=== PATIENT | female | born 1975 | race African-American/Black ===

== ENCOUNTER 2017-05-13 13:17 | Emergency (ER) | payer SELFPAY ==
[~2017-05-13 13:17] MED LIST: NAPR-683 PO
--- NOTE | 2017-05-13 13:48 | PHYS DOC ---
General Chief Complaint: FOOT INJURY PAIN Stated Complaint: FOOT INJURY Time Seen by MD: 13:29 Source: patient Exam Limitations: no limitations Problems: History of Present Illness Initial Comments Patient is a 41-year-old female who comes to the ED complaining of a puncture to the bottom of her right foot. Patient states 1930 last night she slipped on the stairs and hit her right heel on metal strip causing a puncture wound. Bleeding stopped quickly spontaneously and pain has been controlled the patient clean the wound and applied a Band-Aid. She denies any other injuries from the fall and denies any foot or ankle pain but is aware that with her uncontrolled metabolic diseases foot sores can cause significant issues. She has history of hypertension and diabetes but states that she hasn't been on medication for the past 4-5 months due to finances. She has prescriptions available to her she says she just cannot afford to get them. Blood pressure on arrival is 207/108 however she is asymptomatic. No CAGLE/CP/SOB/focal neuro sx. Tetanus is not up-to-date she denies chest pain shortness of breath headache nausea vomiting or other symptoms. Onset: yesterday Severity: mild Pain/Injury Location: right foot Method of Injury: other Modifying Factors: worse with jarring, worse with movement, improves with rest Allergies: Coded Allergies: No Known Drug Allergies (Unverified , 03/02/16) Past Medical History Medical History: diabetes, hypertension, other (morbid obesity, hyperthyroidism , noncompliance) Surgical History: other (gastric bypass) Social History Smoker: non-smoker Alcohol: none Drugs: none Review of Systems Constitutional: denies chills, denies diaphoresis, denies fever, denies malaise EENTM: denies eye pain, denies blurred vision Respiratory: denies cough, denies shortness of breath Cardiovascular: denies chest pain, denies palpitations, denies syncope Gastrointestinal: denies abdominal pain, denies nausea, denies vomiting Musculoskeletal: denies back pain, denies joint pain, denies joint swelling, denies neck pain Skin: see HPI Psychiatric/Neurological: see HPI Physical Exam General Appearance: no apparent distress, obese Neck: non-tender, supple Cardiovascular/Respiratory: normal peripheral pulses, normal breath sounds, no respiratory distress Back: no CVA tenderness, no vertebral tenderness Ankles: bilateral ankle non-tender, bilateral ankle normal inspection, bilateral ankle normal range of motion, bilateral ankle no evidence of injury Feet: bilateral foot normal range of motion, bilateral foot no evidence of injury, right foot abrasions/lacerations, right foot other (small 0.4 cm puncture wound with overlying flap noted at the plantar surface of the right heel, no foreign bodies or contused tissue no active bleeding or discharge.) Neurologic/Tendon: normal motor functions, normal tendon functions, responds to pain, no evidence tendon injury Psychiatric: alert, oriented x 3 Skin: warm/dry (right foot as above) Orders, Labs, Meds I discussed uncontrolled chronic metabolic disease and risks at length with the patient. She has prescriptions available to her for her blood pressure and diabetes but states she has no intention to get them. I discussed the option of treating her blood pressure here but she refuses as she is not having any symptoms and will have to face the same issue tomorrow. She is aware of the risk of osteomyelitis and the need to keep her wound clean. Her tetanus vaccination was updated at 1 g of Rocephin was given intramuscularly. The wound was soaked in Betasept, cleansed irrigated and dressed per RN. I discussed signs and symptoms to monitor as well as indications for urgent return to the department. I stressed the importance to control her chronic disease and discussed [facility] and [facility]. Her questions were answered to her satisfaction and she expressed agreement and understanding with the treatment plan. Departure Time of Disposition: 13:44 Disposition: 01 HOME, SELF-CARE Diagnosis: right foot skin avulsion, uncontrolled diabetes an Condition: STABLE Patient Instructions: Deep Skin Avulsion, Diabetes and Small Vessel Disease, VIS, Tetanus, Diphtheria, and Pertussis (Tdap) - CDC Additional Instructions: Tetanus vaccination updated and Rocephin 1 g given intramuscularly. Strongly encourage you to obtain your medications and controlling or metabolic disease to prevent severe complications. ED staff will provide you with information we have available regarding the [facility] and [facility] clinic. Contact these resources today to become established. Keep wound covered with sterile dressing until completely healed. Wash wound thoroughly with soap and warm water 3 times daily and change the dressing. Apply Bactroban ointment with your evening dressing change and make sure you allow the wound to air dry 1 hour daily. Prescription: Clindamycin Obtain your blood pressure and diabetes medications DORENE. Follow-up with a doctor in 3 days for a wound check. Return to ED with new or changing symptoms. CARLYLE SHI DO May 13, 2017 13:48
[2017-05-13] MEDS ORDERED: CLIN300C8 PO (13:49)
[2017-05-13] MEDS ORDERED: MUPI15CR TP (13:49)
[2017-05-13] MEDS ORDERED: MUPIROCIN 2% TOPICAL OINTMENT 22GM TUBE. TP ONE (14:00)
[2017-05-13] MEDS ORDERED: DIPHTH,PERTUSS(ACELL),TET TOX 0.5 ML DISP.SYRIN. VAX IM ONE (14:00)
[2017-05-13] MEDS ORDERED: cefTRIAXone IM 1 GM VIAL IM ONE (14:00)
[2017-05-13 14:28] VITALS: BP 193/100
== END 2017-05-13 14:32 | disposition home or self-care (01) ==
LOC: ER 13:17
DX: S91.331A Puncture wound without foreign body, right foot, initial encounter (principal); E66.01 Morbid (severe) obesity due to excess calories; E11.9 Type 2 diabetes mellitus without complications; E05.90 Thyrotoxicosis, unspecified without thyrotoxic crisis or storm; I10 Essential (primary) hypertension; Z98.84 Bariatric surgery status; W51.XXXA Accidental striking against or bumped into by another person, initial encounter; Y93.89 Activity, other specified; Y99.8 Other external cause status; Y92.89 Other specified places as the place of occurrence of the external cause
CPT/HCPCS: 90471; 90715; 96372; 99284; J0696

== ENCOUNTER 2018-03-23 18:34 | Emergency (ER) | payer OTHER ==
[~2018-03-23] VITALS: Ht 157.5 cm; Wt 108.0 kg
[~2018-03-23 18:34] MED LIST changes: +CLIN300C8 PO; +MUPI15CR TP
[2018-03-23] MEDS ORDERED: amLODIPine BESYLATE 5 MG TABLET PO ONE (19:30)
[2018-03-23 19:35] LABS: BASO # 0.1 x10^3/uL (0.0-0.2); BASO % 1 % (0-3); EOS # 0.1 x10^3/uL (0.0-0.7); EOS % 2 % (0-3); HEMATOCRIT 38.8 % (36.0-47.0); HEMOGLOBIN 12.9 g/dL (12.0-15.5); LYMPH % 25 % (24-48); MEAN CORPUSCULAR HEMOGLOBIN 29 pg (25-35); MEAN CORPUSCULAR HGB CONC 33 g/dL (31-37); MEAN CORPUSCULAR VOLUME 86 fL (79-100); MONO # 0.5 x10^3/uL (0.0-1.1); MONO % 6 % (0-9); NEUT # 5.2 x10^3uL (1.8-7.7); NEUT % 66 % (31-73); PLATELET COUNT 263 x10^3/uL (140-400); RED BLOOD COUNT 4.52 x10^6/uL (3.50-5.40); RED CELL DISTRIBUTION WIDTH 13.5 % (11.5-14.5); WHITE BLOOD COUNT 7.8 x10^3/uL (4.0-11.0)
[2018-03-23 19:54] LABS: PREG TEST PT QUAL NEGATIVE (NEG)
[2018-03-23 19:59] LABS: ALBUMIN 3.2 g/dL (3.4-5.0); ALBUMIN/GLOBULIN RATIO 0.8 (1.0-1.7); CALCIUM 8.6 mg/dL (8.5-10.1); CREATININE 0.9 mg/dL (0.6-1.0); GFR 82.3; POTASSIUM 3.5 mmol/L (3.5-5.1); TOTAL BILIRUBIN 0.6 mg/dL (0.2-1.0); TOTAL PROTEIN 7.3 g/dL (6.4-8.2)
--- NOTE | 2018-03-23 20:10 | PHYS DOC ---
Adult General Chief Complaint Chief Complaint dizzy HPI HPI 42 years old female with history of diabetes presented emergency department with the feeling dizzy she stated she usually takes blood pressure medication she has not been taking for long time upon arrival her blood pressure in the emergency department 166/90 Denies any chest pain or shortness breath no any other symptoms Review of Systems Review of Systems Constitutional: Denies fever or chills [] Eyes: Denies change in visual acuity, redness, or eye pain [] HENT: Denies nasal congestion or sore throat [] Respiratory: Denies cough or shortness of breath [] Cardiovascular: No additional information not addressed in HPI [] GI: Denies abdominal pain, nausea, vomiting, bloody stools or diarrhea [] : Denies dysuria or hematuria [] Musculoskeletal: Denies back pain or joint pain [] Integument: Denies rash or skin lesions [] Neurologic: Denies headache, focal weakness or sensory changes [] Endocrine: Denies polyuria or polydipsia [] All other systems were reviewed and found to be within normal limits, except as documented in this note. Current Medications Current Medications Current Medications Medications (Trade) Dose Ordered Sig/Preethi Start Time Stop Time Status Last Admin Dose Admin Amlodipine Besylate (Norvasc) 5 mg 1X ONCE 03/23/18 19:30 03/23/18 19:34 DC 03/23/18 19:44 5 MG Allergies Allergies Allergies Coded Allergies Type Severity Reaction Last Updated Verified No Known Drug Allergies 03/02/16 No Physical Exam Physical Exam Constitutional: Well developed, well nourished, no acute distress, non-toxic appearance. [] HENT: Normocephalic, atraumatic, bilateral external ears normal, oropharynx moist, no oral exudates, nose normal. [] Eyes: PERRLA, EOMI, conjunctiva normal, no discharge. [] Neck: Normal range of motion, no tenderness, supple, no stridor. [] Cardiovascular:Heart rate regular rhythm, no murmur [] Lungs & Thorax: Bilateral breath sounds clear to auscultation [] Abdomen: Bowel sounds normal, soft, no tenderness, no masses, no pulsatile masses. [] Skin: Warm, dry, no erythema, no rash. [] Back: No tenderness, no CVA tenderness. [] Extremities: No tenderness, no cyanosis, no clubbing, ROM intact, no edema. [] Neurologic: Alert and oriented X 3, normal motor function, normal sensory function, no focal deficits noted. [] Psychologic: Affect normal, judgement normal, mood normal. [] Current Patient Data Vital Signs Vital Signs Date Time Temp Pulse Resp B/P (MAP) Pulse Ox O2 Delivery O2 Flow Rate FiO2 03/23/18 19:44 71 172/89 03/23/18 18:39 97.9 16 99 Room Air Lab Results Laboratory Tests Test 03/23/18 19:15 White Blood Count 7.8 x10^3/uL (4.0-11.0) Red Blood Count 4.52 x10^6/uL (3.50-5.40) Hemoglobin 12.9 g/dL (12.0-15.5) Hematocrit 38.8 % (36.0-47.0) Mean Corpuscular Volume 86 fL (79-100) Mean Corpuscular Hemoglobin 29 pg (25-35) Mean Corpuscular Hemoglobin Concent 33 g/dL (31-37) Red Cell Distribution Width 13.5 % (11.5-14.5) Platelet Count 263 x10^3/uL (140-400) Neutrophils (%) (Auto) 66 % (31-73) Lymphocytes (%) (Auto) 25 % (24-48) Monocytes (%) (Auto) 6 % (0-9) Eosinophils (%) (Auto) 2 % (0-3) Basophils (%) (Auto) 1 % (0-3) Neutrophils # (Auto) 5.2 x10^3uL (1.8-7.7) Lymphocytes # (Auto) 2.0 x10^3/uL (1.0-4.8) Monocytes # (Auto) 0.5 x10^3/uL (0.0-1.1) Eosinophils # (Auto) 0.1 x10^3/uL (0.0-0.7) Basophils # (Auto) 0.1 x10^3/uL (0.0-0.2) Sodium Level 137 mmol/L (136-145) Potassium Level 3.5 mmol/L (3.5-5.1) Chloride Level 100 mmol/L (98-107) Carbon Dioxide Level 29 mmol/L (21-32) Anion Gap 8 (6-14) Blood Urea Nitrogen 11 mg/dL (7-20) Creatinine 0.9 mg/dL (0.6-1.0) Estimated GFR (Cockcroft-Gault) 82.3 BUN/Creatinine Ratio 12 (6-20) Glucose Level 251 mg/dL (70-99) H Calcium Level 8.6 mg/dL (8.5-10.1) Total Bilirubin 0.6 mg/dL (0.2-1.0) Aspartate Amino Transferase (AST) 10 U/L (15-37) L Alanine Aminotransferase (ALT) 12 U/L (14-59) L Alkaline Phosphatase 84 U/L (46-116) Total Protein 7.3 g/dL (6.4-8.2) Albumin 3.2 g/dL (3.4-5.0) L Albumin/Globulin Ratio 0.8 (1.0-1.7) L Serum Test, Qualitative Negative (NEG) EKG EKG [] Radiology/Procedures Radiology/Procedures [] Course & Med Decision Making Course & Med Decision Making Pertinent Labs and Imaging studies reviewed. (See chart for details) [] Final Impression Final Impression [] Problems: (1) Hypertension Qualifiers: Qualified Codes: I10 - Essential (primary) hypertension Dragon Disclaimer Dragon Disclaimer This electronic medical record was generated, in whole or in part, using a voice recognition dictation system. OJ GUARDADO MD Mar 23, 2018 20:10
[2018-03-23 21:03] VITALS: BP 175/101
== END 2018-03-23 21:05 | disposition home or self-care (01) ==
LOC: ER 18:34
DX: I10 Essential (primary) hypertension (principal); E11.9 Type 2 diabetes mellitus without complications
CPT/HCPCS: 36415; 80053; 84703; 85025; 99283

== ENCOUNTER 2019-03-29 08:03 | Emergency (ER) | payer SELFPAY ==
[~2019-03-29] VITALS: Ht 157.5 cm; Wt 108.0 kg
[2019-03-29] MEDS ORDERED: HYDR-3165 PO (08:38)
[2019-03-29] MEDS ORDERED: SULF1TAB24 PO (08:38)
[2019-03-29 08:39] VITALS: BP 108/67
--- NOTE | 2019-03-29 08:45 | PHYS DOC ---
Adult General Chief Complaint Chief Complaint Left leg pain rectal pain HPI HPI 43 years old female who is diabetic presented to the emergency department with pain on the left buttock stated that she noticed some drainage her sister looked at it and noticed an abscess noticed over the draining no fever no chills no toxic symptoms no shortness breath Review of Systems Review of Systems Constitutional: Denies fever or chills [] Eyes: Denies change in visual acuity, redness, or eye pain [] HENT: Denies nasal congestion or sore throat [] Respiratory: Denies cough or shortness of breath [] Cardiovascular: No additional information not addressed in HPI [] GI: Denies abdominal pain, nausea, vomiting, bloody stools or diarrhea [] : Denies dysuria or hematuria [] Musculoskeletal: Denies back pain or joint pain [] Integument: Denies rash or skin lesions [] Neurologic: Denies headache, focal weakness or sensory changes [] Endocrine: Denies polyuria or polydipsia [] All other systems were reviewed and found to be within normal limits, except as documented in this note. Allergies Allergies Allergies Coded Allergies Type Severity Reaction Last Updated Verified No Known Drug Allergies 03/02/16 No Physical Exam Physical Exam Constitutional: Well developed, well nourished, no acute distress, non-toxic appearance. [] HENT: Normocephalic, atraumatic, bilateral external ears normal, oropharynx moist, no oral exudates, nose normal. [] Eyes: PERRLA, EOMI, conjunctiva normal, no discharge. [] Neck: Normal range of motion, no tenderness, supple, no stridor. [] Cardiovascular:Heart rate regular rhythm, no murmur [] Lungs & Thorax: Bilateral breath sounds clear to auscultation [] Abdomen: Bowel sounds normal, soft, no tenderness, no masses, no pulsatile masses. [] Skin 4.5 cm cellulitis on the left leg with central abscess draining Back: No tenderness, no CVA tenderness. [] Extremities: No tenderness, no cyanosis, no clubbing, ROM intact, no edema. [] Neurologic: Alert and oriented X 3, normal motor function, normal sensory function, no focal deficits noted. [] Psychologic: Affect normal, judgement normal, mood normal. [] EKG EKG [] Radiology/Procedures Radiology/Procedures [] Course & Med Decision Making Course & Med Decision Making Wound irrigated with normal saline abscess packed with gauze [] Final Impression Final Impression Abscess[] Problems: (1) Abscess Dragon Disclaimer Dragon Disclaimer This electronic medical record was generated, in whole or in part, using a voice recognition dictation system. OJ GUARDADO MD Mar 29, 2019 08:45
== END 2019-03-29 08:57 | disposition home or self-care (01) ==
LOC: ER 08:03
DX: L03.116 Cellulitis of left lower limb (principal); L02.31 Cutaneous abscess of buttock; E11.9 Type 2 diabetes mellitus without complications
CPT/HCPCS: 99283

== ENCOUNTER 2019-06-12 11:27 | Emergency (ER) | payer OTHER ==
[~2019-06-12] VITALS: Ht 157.5 cm; Wt 115.0 kg
[~2019-06-12 11:27] MED LIST changes: +HYDR-3165 PO; +SULF1TAB24 PO
[2019-06-12 11:44] VITALS: BP 193/103
--- NOTE | 2019-06-12 11:59 | PHYS DOC ---
Past History Past Medical History: Diabetes, Hypertension Past Surgical History: No Surgical History Smoking: Non-smoker Alcohol Use: None Drug Use: None Adult General Chief Complaint Chief Complaint: FLU SYMPTOM HPI HPI 43-year-old female presents with 3 day history of URI-type symptoms. Patient reports nasal congestion, sore throat, nonproductive cough, and subjective fever/chills. Denies known sick contacts however patient does work at a daycare. Denies . Reports history of IUD. Denies trauma. Patient does report history of diabetes but is unsure regarding her last A1c. Reports she takes oral medications and does not check her blood sugars routinely. Review of Systems Review of Systems Constitutional: Denies fever or chills Eyes: Denies redness or eye pain HENT: Reports nasal congestion and sore throat Respiratory: Reports cough; denies shortness of breath Cardiovascular: Denies chest pain or palpitations GI: Denies abdominal pain, nausea, or vomiting : Denies dysuria or hematuria Musculoskeletal: Denies back pain or joint pain Integument: Denies rash or skin lesions Neurologic: Denies headache, focal weakness or sensory changes Complete systems were reviewed and found to be within normal limits, except as documented in this note. Allergies Allergies Allergies Coded Allergies Type Severity Reaction Last Updated Verified No Known Drug Allergies 03/02/16 No Physical Exam Physical Exam Constitutional: Well developed, well nourished, no acute distress, non-toxic appearance HENT: Normocephalic, atraumatic, oropharynx moist, pharynx without exudate, nasal congestion noted, TMs clear bilaterally Eyes: Conjunctiva normal, no discharge Neck: Normal range of motion, no tenderness, supple, no meningeal signs Cardiovascular: Heart rate normal, regular rhythm Lungs & Thorax: Bilateral breath sounds clear to auscultation, no wheezing Abdomen: Soft, no tenderness Skin: Warm, dry, no erythema, no rash Extremities: No tenderness, ROM intact, no edema Neurologic: Alert and oriented X 3, no focal deficits noted Psychologic: Affect normal, judgment normal EKG EKG [] Radiology/Procedures Radiology/Procedures PROCEDURE: CHEST PA & LATERAL Exam performed: 2 views of the chest. Indication: Cough Date of Service: 06/12/2019 11:45 AM . Comparison : One view chest from 03/02/2016. Findings: PA and lateral radiographs of the chest reveal a mildly enlarged cardiomediastinal contour. The lungs are clear. No pleural fluid is seen. The visualized osseous structures are unremarkable. Impression: Mild cardiomegaly. No acute pulmonary process seen. Electronically signed by: Marija Padilla MD (06/12/2019 12:11 PM) [id number] Course & Med Decision Making Course & Med Decision Making Pertinent Labs and Imaging studies reviewed. (See chart for details) Patient presents with 3 day history of URI-type symptoms. Afebrile upon arrival. Sats stable. Patient does report history of diabetes however has not had her A 1c or any recent glucose test performed. Accu-Chek...... chest x-ray...... rapid influenza..... Patient stable for discharge with outpatient follow-up with PCP. Discussed findings and plan with patient, who acknowledges understanding and agreement. Dragon Disclaimer Dragon Disclaimer This electronic medical record was generated, in whole or in part, using a voice recognition dictation system. Departure Departure: Impression: Primary Impression: Upper respiratory infection Additional Impression: Hyperglycemia Disposition: 01 HOME, SELF-CARE Condition: STABLE Referrals: PRADEEP VILLA MD (PCP) Patient Instructions: Upper Respiratory Infection, Adult, [id number] Scripts Albuterol Sulfate (PROAIR HFA INHALER) 8.5 Gm Hfa.aer.ad 2 PUFF IH PRN Q4-6HRS PRN for wheezing, #1 INHALER 0 Refills Prov: BINTA RDZ DO 06/12/19 Benzonatate (TESSALON PERLE) 100 Mg Capsule 1 CAP PO TID PRN for COUGH, #30 CAP Prov: BINTA RDZ DO 06/12/19 Problem Qualifiers Primary Impression: Upper respiratory infection URI type: unspecified URI Qualified Codes: J06.9 - Acute upper respiratory infection, unspecified BINTA RDZ DO Jun 12, 2019 11:59
--- NOTE | 2019-06-12 12:14 | RAD ---
Exam performed: 2 views of the chest. Indication: Cough Date of Service: 06/12/2019 11:45 AM . Comparison : One view chest from 03/02/2016. Findings: PA and lateral radiographs of the chest reveal a mildly enlarged cardiomediastinal contour. The lungs are clear. No pleural fluid is seen. The visualized osseous structures are unremarkable. Impression: Mild cardiomegaly. No acute pulmonary process seen. Electronically signed by: Marija Padilla MD (06/12/2019 12:11 PM) [id number]
[2019-06-12 12:54] LABS: INFLUENZA A PATIENT NEGATIVE (NEGATIVE); INFLUENZA B PATIENT NEGATIVE (NEGATIVE)
[2019-06-12] MEDS ORDERED: BENZ100C PO (13:10)
[2019-06-12] MEDS ORDERED: ALBU2.5V8 IH (13:10)
[2019-06-12] MEDS ORDERED: DEXAMETHASONE 4 MG TABLET PO ONE (13:15)
== END 2019-06-12 13:23 | disposition home or self-care (01) ==
LOC: ER 11:27
DX: J06.9 Acute upper respiratory infection, unspecified (principal); E11.69 Type 2 diabetes mellitus with other specified complication; I10 Essential (primary) hypertension
CPT/HCPCS: 71046; 82947; 87804; 99284

== ENCOUNTER 2020-04-17 08:29 | Emergency (ER) | payer OTHER ==
[~2020-04-17] VITALS: Ht 157.5 cm; Wt 120.0 kg
[~2020-04-17 08:29] MED LIST changes: +ALBU2.5V8 IH; +BENZ100C PO; -CLIN300C8 PO; +CLIN300C9 PO
[2020-04-17] MEDS ORDERED: ASPIRIN CHEWABLE 81 MG TABLET. PO ONE (09:00)
[2020-04-17 09:03] LABS: BASO % 1 % (0-3); EOS # 0.1 x10^3/uL (0.0-0.7); EOS % 3 % (0-3); HEMATOCRIT 38.3 % (36.0-47.0); HEMOGLOBIN 12.5 g/dL (12.0-15.5); LYMPH # 1.5 x10^3/uL (1.0-4.8); LYMPH % 29 % (24-48); MEAN CORPUSCULAR HEMOGLOBIN 28 pg (25-35); MEAN CORPUSCULAR HGB CONC 33 g/dL (31-37); MEAN CORPUSCULAR VOLUME 85 fL (79-100); MONO # 0.4 x10^3/uL (0.0-1.1); MONO % 8 % (0-9); NEUT # 3.2 x10^3uL (1.8-7.7); NEUT % 60 % (31-73); PLATELET COUNT 258 x10^3/uL (140-400); RED BLOOD COUNT 4.51 x10^6/uL (3.50-5.40); WHITE BLOOD COUNT 5.4 x10^3/uL (4.0-11.0)
--- NOTE | 2020-04-17 09:04 | PHYS DOC ---
Past History Past Medical History: Diabetes Past Surgical History: Cholecystectomy, Gastric Bypass Smoking: Non-smoker Alcohol Use: None Drug Use: None Adult General Chief Complaint Chief Complaint: CHEST PAIN HPI HPI Patient is a 44-year-old female presenting for right-sided chest pain. Onset was this morning shortly after waking up, nothing known makes better or worse, patient reports pain is a dull feeling that is situated under her left breast and radiates to her right side. Timing of symptoms has been constant since onset. Patient reports having Covid January 2020 and recovered from it. States approximately 1 week ago she started developing URI-like symptoms such as rhinorrhea and postnasal drip that has caused her to develop a dry nonproductive cough that is worse when laying down/in the evening. Denies fever, recent long distance travel, syncope, lightheadedness or dizziness, productive cough, abdominal pain, changes in bladder or bowel function, hemoptysis, lower extremity edema, history of blood clot or cardiovascular issues. She is a [id number] diabetic and is being treated for high blood pressure, she did not take any of her medicines today Review of Systems Review of Systems Fourteen body systems of review of systems have been reviewed. See HPI for per tinent positives and negative responses, other vergara all other systems are negative, non-pertinent or non-contributory Current Medications Current Medications Current Medications Medications (Trade) Dose Ordered Sig/Preethi Start Time Stop Time Status Last Admin Dose Admin Aspirin (Aspirin Chewable) 162 mg 1X ONCE 04/17/20 09:00 04/17/20 09:01 04/17/20 08:47 162 MG Allergies Allergies Allergies Coded Allergies Type Severity Reaction Last Updated Verified No Known Drug Allergies 03/02/16 No Physical Exam Physical Exam Constitutional: Well developed, well nourished, no acute distress, non-toxic appearance. HENT: Normocephalic, atraumatic, bilateral external ears normal, oropharynx moist, postnasal drip present, tonsils equal without enlargement with uvula midline, no oral exudates, nose normal. Eyes: PERRLA, EOMI, conjunctiva normal, no discharge. Neck: Normal range of motion, no tenderness, supple, no stridor. Cardiovascular: Heart rate regular, sinus rhythm, no murmurs rubs or gallops Lungs & Thorax: Bilateral breath sounds clear to auscultation Abdomen: Bowel sounds normal, soft and protuberant, no tenderness, no masses, no pulsatile masses. Nonsurgical abdomen, no peritoneal signs Skin: Warm, dry, no erythema, no rash. Back: No tenderness, no CVA tenderness. Extremities: No tenderness, no cyanosis, no clubbing, ROM intact, no edema. Neurologic: Alert and oriented X 3, grossly normal motor & sensory function, no focal deficits noted. Psychologic: Affect normal, judgement normal, mood normal. Current Patient Data Vital Signs Vital Signs Date Time Temp Pulse Resp B/P (MAP) Pulse Ox O2 Delivery O2 Flow Rate FiO2 04/17/20 08:38 98.0 111 18 185/101 (129) 93 Lab Results Laboratory Tests Test 04/17/20 08:51 04/17/20 09:25 04/17/20 09:31 White Blood Count 5.4 x10^3/uL Red Blood Count 4.51 x10^6/uL Hemoglobin 12.5 g/dL Hematocrit 38.3 % Mean Corpuscular Volume 85 fL Mean Corpuscular Hemoglobin 28 pg Mean Corpuscular Hemoglobin Concent 33 g/dL Red Cell Distribution Width 14.0 % Platelet Count 258 x10^3/uL Neutrophils (%) (Auto) 60 % Lymphocytes (%) (Auto) 29 % Monocytes (%) (Auto) 8 % Eosinophils (%) (Auto) 3 % Basophils (%) (Auto) 1 % Neutrophils # (Auto) 3.2 x10^3uL Lymphocytes # (Auto) 1.5 x10^3/uL Monocytes # (Auto) 0.4 x10^3/uL Eosinophils # (Auto) 0.1 x10^3/uL Basophils # (Auto) 0.0 x10^3/uL Prothrombin Time 10.4 SEC Prothromb Time International Ratio 1.0 Activated Partial Thromboplast Time 27 SEC D-Dimer (Nevaeh) 0.46 mg/L Sodium Level 139 mmol/L Potassium Level 3.8 mmol/L Chloride Level 103 mmol/L Carbon Dioxide Level 30 mmol/L Anion Gap 6 Blood Urea Nitrogen 10 mg/dL Creatinine 0.9 mg/dL Estimated GFR (Cockcroft-Gault) 81.6 BUN/Creatinine Ratio 11 Glucose Level 206 mg/dL Calcium Level 8.9 mg/dL Total Bilirubin 0.6 mg/dL Aspartate Amino Transf (AST/SGOT) 21 U/L Alanine Aminotransferase (ALT/SGPT) 30 U/L Alkaline Phosphatase 99 U/L Troponin I Quantitative < 0.017 ng/mL KG-Oyy-[id number]-Type Natriuretic Peptide 56 pg/mL Total Protein 7.1 g/dL Albumin 3.0 g/dL Albumin/Globulin Ratio 0.7 Urine Opiates Screen Neg Urine Methadone Screen Neg Urine Barbiturates Neg Urine Phencyclidine Screen Neg Urine Amphetamine/Methamphetamine Neg Urine Benzodiazepines Screen Neg Urine Cocaine Screen Neg Urine Cannabinoids Screen Neg Urine Ethyl Alcohol Neg Bedside Urine HCG, Qualitative hcg negative Current Medications Medications (Trade) Dose Ordered Sig/Preethi Route PRN Reason Start Time Stop Time Status Last Admin Dose Admin Aspirin (Aspirin Chewable) 162 mg 1X ONCE PO 04/17/20 09:00 04/17/20 09:01 DC 04/17/20 08:47 EKG EKG EKG ordered and interpreted by myself at 0846 hrs. as sinus rhythm 99 bpm, unremarkable intervals, no axis deviation, no acute ischemic findings, no STEMI Radiology/Procedures Radiology/Procedures XR CHEST 1V CLINICAL INDICATIONS: Chest pain COMPARISON: June 12, 2019. Findings: Decreased inspiration is seen. No acute lung infiltrate or pleural effusion or pulmonary edema or lung mass or pneumothorax is seen. The heart size, pulmonary vasculature, mediastinum and both gallito are unremarkable. IMPRESSION: Decreased inspiration. No acute radiographic abnormality is seen. Electronically signed by: Amrit Silvestre MD (04/17/2020 9:34 AM) [id number] Heart Score HEART Score for Chest Pain: HEART Score for Chest Pain Response (Comments) Value History Slighlty/Non-Suspicious 0 ECG Normal 0 Age >45 - < 65 1 Risk Factors 1 or 2 Risk Factors 1 Troponin < Normal Limit 0 Total 2 Risk Factors: Risk Factors: DM, Current or recent (<one month) smoker, HTN, HLP, family history of CAD, obesity. Risk Scores: Risk Factors: DM, Current or recent (<one month) smoker, HTN, HLP, family history of CAD, obesity. Course & Med Decision Making Course & Med Decision Making Discussed with the patient all findings and diagnostic testing. I discussed most likely diagnosis of symptomatic postnasal drip. I advised need for ongoing supportive care practices such as Zyrtec and Flonase use with close PCP follow- up. I did disclose heart score in fact that patient was low risk for both PE and chest pain but could not definitively rule this out and so, I stressed need for close outpatient follow-up to review today's ER visit. Strict return precautions were also discussed at length with good understanding by patient. Patient voiced understanding and agreement with the plan. Patient knows to come back for repeat evaluation if concerning signs or symptoms present prior to outpatient follow-up. Hemodynamically stable, ambulatory and well-appearing at time of disposition. Dragon Disclaimer Dragon Disclaimer This electronic medical record was generated, in whole or in part, using a voice recognition dictation system. Departure Departure: Impression: Primary Impression: Post-nasal drip Disposition: 01 DC HOME SELF CARE/HOMELESS Condition: GOOD Referrals: PRADEEP VILLA MD (PCP) Patient Instructions: Viral Syndrome Scripts Cetirizine Hcl (ZYRTEC) 10 Mg Tablet 1 TAB PO DAILY for ALLERGIES, #30 TAB 2 Refills Prov: SUHA AN DO 04/17/20 Fluticasone Propionate (Flonase Allergy Relief) 9.9 Ml [place].susp 1 SPRAYS NS DAILY for ALLERGIES, #1 BOTTLE Prov: SUHA AN DO 04/17/20 SUHA AN DO Apr 17, 2020 09:03
[2020-04-17 09:18] LABS: CALCIUM 8.9 mg/dL (8.5-10.1); CREATININE 0.9 mg/dL (0.6-1.0); GFR 81.6; POTASSIUM 3.8 mmol/L (3.5-5.1)
[2020-04-17 09:27] LABS: ALBUMIN/GLOBULIN RATIO 0.7 (1.0-1.7); TOTAL BILIRUBIN 0.6 mg/dL (0.2-1.0); TOTAL PROTEIN 7.1 g/dL (6.4-8.2)
--- NOTE | 2020-04-17 09:44 | RAD ---
XR CHEST 1V CLINICAL INDICATIONS: Chest pain COMPARISON: June 12, 2019. Findings: Decreased inspiration is seen. No acute lung infiltrate or pleural effusion or pulmonary ed tien or lung mass or pneumothorax is seen. The heart size, pulmonary vasculature, mediastinum and bot h gallito are unremarkable. IMPRESSION: Decreased inspiration. No acute radiographic abnormality is seen. Electronically signed by: Amrit Silvestre MD (04/17/2020 9:34 AM) [id number]
[2020-04-17 09:46] LABS: BARBITURATES NEG (NEG); BENZODIAZEPINES NEG (NEG); CANNABINOIDS NEG (NEG); COCAINE NEG (NEG); METHADONE NEG (NEG); OPIATES NEG (NEG); PHENCYCLIDINE NEG (NEG)
[2020-04-17 09:47] LABS: AMPHETAMINE/METHAMPHETAMINE NEG (NEG)
[2020-04-17 10:00] VITALS: BP 176/96
[2020-04-17] MEDS ORDERED: FLUT9.9S NS (10:24)
[2020-04-17] MEDS ORDERED: CETI10TA74 PO (10:26)
[2020-04-17] MEDS ORDERED: CETIRIZINE HCL 10 MG TABLET PO ONE (10:45)
--- NOTE | 2020-04-17 13:10 | EKG ---
[address] [address] Test Date: 2020-04-17 Test Time: 08:36:47 Pat Name: MATTHEW BAUTISTA Department: Room: Gender: F Video Coordinator: ANIYA : 1975 Requested By: SUHA AN Order Number: [id number] Reading MD: Measurements Intervals [place] Rate: 99 P: 26 NM: 168 QRS: 69 QRSD: 98 T: 28 QT: 354 QTc: 460 Interpretive Statements SINUS RHYTHM R-S TRANSITION ZONE IN V LEADS DISPLACED TO THE LEFT OTHERWISE NORMAL ECG RI6.02 No previous ECG available for comparison
== END 2020-04-17 10:27 | disposition home or self-care (01) ==
LOC: ER 08:29
DX: R09.82 Postnasal drip (principal); R07.89 Other chest pain; R05 Cough; E11.9 Type 2 diabetes mellitus without complications; Z90.49 Acquired absence of other specified parts of digestive tract; Z98.890 Other specified postprocedural states
CPT/HCPCS: 36415; 71045; 80053; 80307; 81025; 83880; 84484; 85025; 85379; 85610; 85730; 93005; 99285